=== PATIENT | female | born 1945 ===

== ENCOUNTER 2017-02-07 14:00 | Emergency (ER) | payer OTHER ==
[2017-02-07 14:00] VITALS: BMI 24.2
[2017-02-07 14:17] VITALS: RESP 18
[2017-02-07] MEDS ORDERED: Sodium Chloride 0.9% 1,000 ML IV ONE (14:39)
--- NOTE | 2017-02-07 14:43 | C.PDOC ---
History Of Present Illness <Maribel Miller - Last Filed: 02/07/17 14:32> <Jabier Turner - Last Filed: 02/07/17 16:24> Patient is a 71 y/o female that presents to the ED for evaluation of diarrhea for the last 3 days. Notes eating a banana and bagels today. Pt reports feeling weak, and lethargic. Otherwise, denies any abdominal pain, fever, chills, or any other complaints at this time. (Jabier Turner) <Maribel Miller Erasto - Last Filed: 02/07/17 14:32> History Per: Patient History/Exam Limitations: no limitations Onset/Duration Of Symptoms: Days (3) Current Symptoms Are (Timing): Still Present Severity: None Pain Scale Rating Of: 0 Radiation Of Pain To:: None Associated Symptoms: Diarrhea. denies: Fever, Chills, Loss Of Appetite, Back Pain, Chest Pain, Constipation, Urinary Symptoms Exacerbating Factors: None Alleviating Factors: None Recent travel outside of the [place]: No Additional History Per: Patient Abnormal Vaginal Bleeding: No <Jabier Turner - Last Filed: 02/07/17 16:24> Time Seen by Provider: 02/07/17 14:32 Chief Complaint (Nursing): Abdominal Pain Past Medical History - Medical History PMH: Arthritis, CAD, HTN, Hypercholesterolemia Family History: States: [place], CAD - Social History Hx Tobacco Use: No Hx Alcohol Use: No Hx Substance Use: No - Immunization History Hx Tetanus Toxoid Vaccination: No Hx Influenza Vaccination: No Hx Pneumococcal Vaccination: No <Maribel Miller - Last Filed: 02/07/17 14:32> Reviewed: Historical Data, Nursing Documentation, Vital Signs Family History: States: Unknown Family Hx <Jabier Turner - Last Filed: 02/07/17 16:24> Vital Signs: Last Vital Signs Temp 98 F 02/07/17 15:56 Pulse 60 02/07/17 15:56 Resp 18 02/07/17 15:56 BP 169/90 H 02/07/17 15:56 Pulse Ox 97 02/07/17 15:56 Review Of Systems Except As Marked, All Systems Reviewed And Found Negative. Constitutional: Positive for: Weakness. Negative for: Fever, Chills Cardiovascular: Negative for: Chest Pain, Palpitations Respiratory: Negative for: Shortness of Breath Gastrointestinal: Positive for: Diarrhea. Negative for: Abdominal Pain, Constipation, Melena, Hematochezia Genitourinary: Negative for: Dysuria, Frequency, Hematuria Musculoskeletal: Negative for: Back Pain Skin: Negative for: Rash Neurological: Negative for: Weakness, Numbness, Headache, Dizziness <Jabier Turner - Last Filed: 02/07/17 16:24> Physical Exam - Physical Exam Appears: Non-toxic, No Acute Distress Skin: Normal Color, Warm, Dry Head: Atraumatic, Normacephalic Chest: Symmetrical Cardiovascular: Rhythm Regular, No Murmur Respiratory: Normal Breath Sounds, No Rales, No Rhonchi, No Wheezing Gastrointestinal/Abdominal: Soft, No Tenderness, No Guarding, No Rebound Extremity: Bilateral: Atraumatic, Normal ROM Neurological/Psych: Oriented x3, Normal Speech <Jabier Turner - Last Filed: 02/07/17 16:24> ED Course And Treatment O2 Sat by Pulse Oximetry: 95 <Maribel Miller - Last Filed: 02/07/17 14:32> - Laboratory Results Result Diagrams: 02/07/17 15:04 02/07/17 15:04 Lab Interpretation: Normal (UA neg, trop neg.) Pulse Ox Interpretation: Normal - Radiology CXR: Interpreted by Me CXR Interpretation: Yes: No Acute Disease - Other Rad abd x 2 X-Ray: Interpreted by Me (scnat stool, no obst) Progress Note: IVF, pepcid, zofran Reevaluation Time: 15:40 Reassessment Condition: Improved <Jabier Turner - Last Filed: 02/07/17 16:24> Medical Decision Making <Maribel Miller - Last Filed: 02/07/17 14:32> <Jabier Turner - Last Filed: 02/07/17 16:24> Medical Decision Making: mild diarrhea pristine labs, argues against C-diff colitis diet and imodium educated. (Jabier Turner) Disposition <Maribel Miller - Last Filed: 02/07/17 14:32> Doctor Will See Patient In The: Office Counseled Patient/Family Regarding: Studies Performed, Diagnosis - Disposition Disposition Time: 15:41 <Johnny,Julian - Last Filed: 02/07/17 16:24> - Disposition Referrals: Johanne Levine MD [Medical Doctor] - Disposition: HOME/ ROUTINE Condition: GOOD Additional Instructions: maureen much agua Dieta de BRAT: Bananas, Arrshreyas browero, Manzashaniqua, De Leon Jojo Pepcid 20 mg en la noche por 1 semana- se baja el acidez del estomago. Imodium 2 mg 2-3x/day as needed- baja la frequencia de la diarrhea. Sigue con Dra. Levine aparna necessita. Instructions: Gastroenteritis (ED), Acute Diarrhea (ED) Print Language: SAMI - Clinical Impression Clinical Impression: Diarrhea <Maribel Miller - Last Filed: 02/07/17 14:32> - Scribe Statement The provider has reviewed the documentation as recorded by the Scribe <Jabier Turner - Last Filed: 02/07/17 16:24> - Scribe Statement Aaron Huang All medical record entries made by the Scribe were at my direction and personally dictated by me. I have reviewed the chart and agree that the record accurately reflects my personal performance of the history, physical exam, medical decision making, and the department course for this patient. I have also personally directed, reviewed, and agree with the discharge instructions and disposition. (Jabier Turner)
[2017-02-07 15:08] LABS: BASO % 0.4 % (0.0-2.0); EOS # 0.1 K/uL (0.0-0.7); EOS % 1.6 % (0.0-4.0); HEMATOCRIT 37.1 % (34.0-47.0); LYMPH # 1.5 K/uL (1.0-4.3); LYMPH % 23.8 % (20.0-40.0); MEAN CELL VOLUME 93.7 fL (81.0-99.0); MEAN CORPUSCULAR HEMOGLOBIN 31.7 pg (27.0-31.0); MEAN CORPUSCULAR HGB CONC 33.8 g/dL (33.0-37.0); MEAN PLATELET VOLUME 7.3 fL (7.2-11.7); MONO # 0.5 K/uL (0.0-0.8); MONO % 8.1 % (0.0-10.0); RED CELL DISTRIBUTION WIDTH 13.4 % (11.5-14.5); WHITE BLOOD COUNT 6.3 K/uL (4.8-10.8)
[2017-02-07] MEDS ORDERED: Sodium Chloride 0.9% 1,000 ML ONE (15:14)
[2017-02-07 15:18] LABS: CHLORIDE 102 mmol/L (98-107); SODIUM 142 mmol/L (132-148)
[2017-02-07 15:19] LABS: POTASSIUM 3.6 mmol/L (3.6-5.2)
[2017-02-07 15:21] LABS: ALB/GLOB RATIO 1.2 (1.0-2.1); ALKALINE PHOSPHATASE 65 U/L (38-126); ALT/SGPT 40 U/L (9-52); AST/SGOT 35 U/L (14-36); BILIRUBIN,TOTAL 0.7 mg/dL (0.2-1.3); BLOOD UREA NITROGEN 10 mg/dL (7-17); CARBON DIOXIDE 28 mmol/L (22-30); GFR AFRICAN-AMERICAN > 60; GLUCOSE,RANDOM 80 mg/dL (65-105); TOTAL PROTEIN 6.9 g/dL (6.3-8.3)
[2017-02-07 15:22] LABS: CALCIUM 8.9 mg/dl (8.6-10.4)
[2017-02-07 15:30] LABS: RBC URINE < 1 /hpf (0-3); URINE BACTERIA RARE (<OCC); URINE BILIRUBIN NEGATIVE (NEGATIVE); URINE BLOOD NEGATIVE (NEGATIVE); URINE COLOR Yellow (YELLOW); URINE GLUCOSE (UA) NORMAL (Normal); URINE KETONE NEGATIVE (NEGATIVE); URINE LEUKOCYTE ESTERASE TRACE Leu/uL (Negative); URINE PROTEIN NEGATIVE (NEGATIVE); URINE UROBILINOGEN NORMAL mg/dL (0.2-1.0); WBC URINE 2 /hpf (0-5)
[2017-02-07 15:57] VITALS: BP 169/90; PULSE 60; TEMP 98; O2SAT 97
--- NOTE | 2017-02-07 16:39 | RAD ---
PROCEDURE: Radiographs of the chest and abdomen (obstructive series) HISTORY: abd pain COMPARISON: No prior. TECHNIQUE: AP radiograph of the chest, with upright and supine radiographs of the abdomen. FINDINGS: CHEST: Lungs: Clear. Cardiovascular: Normal size heart. No pulmonary vascular congestion. Pleura: No pleural fluid. No pneumothorax. Other findings: None. ABDOMEN AND PELVIS: Bowel: Unremarkable bowel gas pattern. No evidence of mechanical obstruction. Free air: None. Bones: Unremarkable. Other findings: None. IMPRESSION: Unremarkable radiographs of chest and abdomen. No evidence of mechanical bowel obstruction.
--- NOTE | 2017-02-08 12:59 | CARD ---
APPROVED REPORT EKG Measurement Heart [id number] CA [id number] <Conclusion> Normal sinus rhythm Normal ECG
== END 2017-02-07 16:02 | disposition home or self-care (01) ==
LOC: C.ER 14:00
DX: R19.7 Diarrhea, unspecified (principal)
CPT/HCPCS: 74022; 80053; 81001; 83690; 84484; 85025; 87230; 93005; 96361; 96374; 96375; 99284; J1885; J2405; J7040

== ENCOUNTER 2017-02-11 14:37 | Emergency (ER) | payer OTHER ==
[2017-02-11 14:38] VITALS: BMI 24.2
[2017-02-11 14:46] VITALS: TEMP 98.7
--- NOTE | 2017-02-11 16:36 | C.PDOC ---
History Of Present Illness 71 y/o female presents to the ED with complaints of right hip and ankle pain. Pt states she went to have labs done this morning on an empty stomach and on the way home, she lost her balance and twisted her ankle and hip. Pt hx of HTN, she didn't take her medications today. Pt denies head injury, LOC, weakness, numbness or any other complaints. Chief Complaint (Nursing): Lower Extremity Problem/Injury History Per: Patient History/Exam Limitations: no limitations Onset/Duration Of Symptoms: Hrs Current Symptoms Are (Timing): Still Present Severity: Moderate Recent travel outside of the [place]: No - Hip Description Of Injury: Lost Balance - Ankle/Foot Description Of Injury: Twisted Past Medical History Reviewed: Historical Data, Nursing Documentation, Vital Signs Vital Signs: Last Vital Signs Temp 98.7 F 02/11/17 14:45 Pulse 72 02/11/17 18:20 Resp 18 02/11/17 18:20 BP 148/79 02/11/17 18:20 Pulse Ox 98 02/11/17 18:20 - Medical History PMH: Arthritis, CAD, HTN, Hypercholesterolemia Family History: States: Unknown Family Hx, [place], CAD - Social History Hx Tobacco Use: No Hx Alcohol Use: No Hx Substance Use: No - Immunization History Hx Tetanus Toxoid Vaccination: No Hx Influenza Vaccination: No Hx Pneumococcal Vaccination: No Review Of Systems Musculoskeletal: Positive for: Other (right ankle and hip pain) Neurological: Negative for: Weakness, Numbness Physical Exam - Physical Exam Appears: Non-toxic, No Acute Distress Skin: Warm, Dry, No Rash Head: Atraumatic, Normacephalic Neck: Normal, Normal ROM, Supple Chest: Symmetrical Cardiovascular: Rhythm Regular, No Murmur Respiratory: Normal Breath Sounds, No Rales, No Rhonchi, No Wheezing Extremity: Normal ROM, Tenderness (diffuse right lateral malleolus and lateral hip tenderness), No Deformity, No Swelling Pulses: Right Dorsalis Pedis: Normal Neurological/Psych: Oriented x3, Normal Speech, Normal Cognition, Normal Motor, Normal Sensation ED Course And Treatment O2 Sat by Pulse Oximetry: 96 (room air) Pulse Ox Interpretation: Normal - Other Rad Right ankle xray X-Ray: Viewed By Me, Read By Radiologist Interpretation: Accession No. : [id number]. Patient Name / ID : GREGG AZEVEDO A / [id number]. Exam Date : 02/11/2017 15:48:49 ( Approved ). Study Comment : Sex / Age : F / 71Y. Creator : Angelita Burnham V. Dictator : Angelita Burnham V. Nurse'S Assistant : Manager Pulmonary : Angelita Burnham V. Approver2 : Report Date : 02/11/2017 16:44:02. My Comment : . PROCEDURE: Right Ankle Radiographs. HISTORY: injury. COMPARISON: None. FINDINGS: BONES: A 2 x 4 mm sliver like ossification contiguous with the inferior fibula here soft tissue swelling is noted not osseous avulsion significantly displaced is consistent with this. Its age is unclear there is some relative sclerosis of the ossification. Inferior calcaneal spur. Trace posterior calcaneal spur-blending Achilles enthesophyte. JOINTS: Posterior subtalar joint hypertrophic arthrosis noted. Ankle mortise maintained. Talar dome intact. SOFT TISSUES: Lateral malleolar soft tissue swelling -mild. OTHER FINDINGS: None. IMPRESSION: Right inferior fibular 2 x 4 mm osseous avulsion - acute and chronic avulsion injuries are possible having given its relative sclerosis and soft tissue swelling here noted. Posterior subtalar joint for trophic arthrosis hip xray X-Ray: Viewed By Me, Read By Radiologist Interpretation: Accession No. : [id number]. Patient Name / ID : GREGG Alvares / [id number]. Exam Date : 02/11/2017 15:49:01 ( Approved ). Study Comment : Sex / Age : F / 71Y. Creator : Angelita Burnham V. Dictator : Angelita Burnham V. Nurse'S Assistant : Manager Pulmonary : Angelita Burnham V. Approver2 : Report Date : 02/11/2017 16:40:15. My Comment : . PROCEDURE: HISTORY: injury. COMPARISON: None. TECHNIQUE: AP view of the pelvis and applicable frog leg views obtained. FINDINGS: Bilateral superolateral acetabular spurring with corresponding joint- space narrowing here is suggested. Fracture dislocation suggested. Sacroiliac and pubic symphyseal joints are unremarkable. IMPRESSION: Bilateral osteoarthrosis. No fracture Progress Note: Plan: XR ankle and hip, losartan and carvedilol. Patient was treated with posterior short leg splint that was applied by PC and checked by me. Patient was given walker for ambulation. She was referred to Ortho for f/u. Disposition - Disposition Referrals: Johanne Levine MD [Primary Care Provider] - Geronimo De La Torre III, MD [Staff Provider] - Disposition: HOME/ ROUTINE Disposition Time: 18:02 Condition: STABLE Additional Instructions: Follow up with PMD and Orthopedist within 1-2 days. Return to ED if feel worse. Prescriptions: Naproxen [Naprosyn] 1 tab PO BID PRN #25 tab PRN Reason: Pain Famotidine [Pepcid] 20 mg PO BID #20 tab Instructions: Hip Sprain (ED), Avulsion Fracture (ED) Print Language: PERSIAN - Clinical Impression Clinical Impression: Avulsion fracture of lateral malleolus, Sprain of right hip - PA / SLATE TRIMMER / Resident Statement MD/DO has reviewed & agrees with the documentation as recorded. - Scribe Statement The provider has reviewed the documentation as recorded by the Mason Diaz All medical record entries made by the Mason were at my direction and personally dictated by me. I have reviewed the chart and agree that the record accurately reflects my personal performance of the history, physical exam, medical decision making, and the department course for this patient. I have also personally directed, reviewed, and agree with the discharge instructions and disposition.
--- NOTE | 2017-02-11 16:41 | RAD ---
PROCEDURE: HISTORY: injury COMPARISON: None TECHNIQUE: AP view of the pelvis and applicable frog leg views obtained. FINDINGS: Bilateral superolateral acetabular spurring with corresponding joint-space narrowing here is suggested. Fracture dislocation suggested. Sacroiliac and pubic symphyseal joints are unremarkable. IMPRESSION: Bilateral osteoarthrosis. No fracture
--- NOTE | 2017-02-11 16:46 | RAD ---
PROCEDURE: Right Ankle Radiographs. HISTORY: injury COMPARISON: None FINDINGS: BONES: A 2 x 4 mm sliver like ossification contiguous with the inferior fibula here soft tissue swelling is noted not osseous avulsion significantly displaced is consistent with this. Its age is unclear there is some relative sclerosis of the ossification. Inferior calcaneal spur. Trace posterior calcaneal spur-blending Achilles enthesophyte JOINTS: Posterior subtalar joint hypertrophic arthrosis noted. Ankle mortise maintained. Talar dome intact SOFT TISSUES: Lateral malleolar soft tissue swelling -mild OTHER FINDINGS: None. IMPRESSION: Right inferior fibular 2 x 4 mm osseous avulsion - acute and chronic avulsion injuries are possible having given its relative sclerosis and soft tissue swelling here noted. Posterior subtalar joint for trophic arthrosis
[2017-02-11 16:59] VITALS: RESP 18
[2017-02-11 18:29] VITALS: BP 148/79; PULSE 72
[2017-02-12 11:35] VITALS: O2SAT 96
== END 2017-02-11 18:28 | disposition home or self-care (01) ==
LOC: SUPCPDRO 14:37 → C.ER 14:37
DX: S82.61XA Displaced fracture of lateral malleolus of right fibula, initial encounter for closed fracture (principal); S73.101A Unspecified sprain of right hip, initial encounter; X58.XXXA Exposure to other specified factors, initial encounter; I10 Essential (primary) hypertension

== ENCOUNTER 2017-04-16 05:45 | Observation (INO) | payer OTHER ==
[2017-04-16 05:46] VITALS: BMI 24.2
--- NOTE | 2017-04-16 06:13 | C.PDOC ---
History Of Present Illness 72 y/o female presents to the ED for evaluation of chest pain which began at around 2300 yesterday. Patient reports her symptoms are left-sided with radiation to left neck. Patient is s/p Ultram taken at around 0500; symptoms have now improved. Patient describes symptoms as nonexertional. Patient reports prior history of similar episode but notes "but rarely." Patient medical history includes Rheumatoid Arthritis and Coronary Artery Disease with coronary stent placement in 2008. History obtained via avionics repair technician. VIA TRANS CP SINCE 2300. L SIDED RADIATION L NECK. S/P ULTRAM @ 0500 NOW IMPROVED. NONEXERTIONAL. HO PRIOR SIM EPISODE "BUT RARELY". HO RA, CAD W STENT 2008 EXAM NEG Time Seen by Provider: 04/16/17 06:13 Chief Complaint (Nursing): Chest Pain History Per: Patient, Dedicated Truck Driver History/Exam Limitations: language barrier Onset/Duration Of Symptoms: Hrs Current Symptoms Are (Timing): Still Present Quality: "Pain" Exacerbating Factors: denies: Exertion Additional History Per: Patient Past Medical History Reviewed: Historical Data, Nursing Documentation, Vital Signs Vital Signs: Last Vital Signs Temp 97.2 F L 04/16/17 05:55 Pulse 64 04/16/17 05:55 Resp 20 04/16/17 05:55 BP 169/82 H 04/16/17 05:55 Pulse Ox 97 04/16/17 06:46 - Medical History PMH: Arthritis, CAD, HTN, Hypercholesterolemia, Rheumatoid Arthritis Surgical History: Coronary Stent Family History: States: [place], CAD - Social History Hx Tobacco Use: No Hx Alcohol Use: No Hx Substance Use: No - Immunization History Hx Tetanus Toxoid Vaccination: No Hx Influenza Vaccination: No Hx Pneumococcal Vaccination: No Review Of Systems Cardiovascular: Positive for: Chest Pain (left-sided) Musculoskeletal: Positive for: Neck Pain (left ) Physical Exam - Physical Exam Appears: Non-toxic, No Acute Distress Skin: Normal Color, Warm, Dry Head: Atraumatic, Normacephalic Eye(s): bilateral: Normal Inspection Oral Mucosa: Moist Neck: Supple Chest: Symmetrical, No Deformity, No Tenderness Cardiovascular: Rhythm Regular, No Murmur Respiratory: Normal Breath Sounds, No Rales, No Rhonchi, No Wheezing Extremity: Normal ROM, Capillary Refill (less than 2 seconds ) Neurological/Psych: Oriented x3, Normal Speech, Normal Cognition Gait: Steady ED Course And Treatment - Laboratory Results Result Diagrams: 04/16/17 06:31 ECG: Interpreted By Me ECG Rhythm: Sinus Rhythm ECG Interpretation: Normal Rate From EC O2 Sat by Pulse Oximetry: 97 (on RA) Pulse Ox Interpretation: Normal Progress Note: labs and EKG ordered and reviewed. Patient reiceved Aspirin PO, Tylenol PO, and Nitroglycerin TOP. Progress - Data Reviewed Data Reviewed: Lab, Diagnostic imaging, EKG, Old records Disposition - Disposition Disposition Time: 07:00 Condition: STABLE Forms: PrivacyProtector (Hong Konger) - Clinical Impression Clinical Impression: Chest pain - Scribe Statement The provider has reviewed the documentation as recorded by the Scribe (Amena Huang) Provider Attestation: All medical record entries made by the Scribe were at my direction and personally dictated by me. I have reviewed the chart and agree that the record accurately reflects my personal performance of the history, physical exam, medical decision making, and the department course for this patient. I have also personally directed, reviewed, and agree with the discharge instructions and disposition. Physician Patient Turnover Patient Signed Over To: Malena Mahmood Handoff Comments: fu labs, dispo
[2017-04-16] MEDS ORDERED: Aspirin 325 mg EC Tablets PO STA (06:25)
[2017-04-16] MEDS ORDERED: Nitroglycerin 2% Ointment Foilpak UD TOP STA (06:25)
[2017-04-16] MEDS ORDERED: Aspirin 325 mg EC Tablets PO ONE (06:35)
[2017-04-16] MEDS ORDERED: Nitroglycerin 2% Ointment Foilpak UD TOP ONE (06:35)
[2017-04-16 06:42] LABS: BASO % 0.4 % (0.0-2.0); CHLORIDE 104 mmol/L (98-107); EOS # 0.1 K/uL (0.0-0.7); EOS % 1.9 % (0.0-4.0); HEMATOCRIT 35.2 % (34.0-47.0); LYMPH % 37.7 % (20.0-40.0); MEAN CELL VOLUME 93.4 fL (81.0-99.0); MEAN CORPUSCULAR HEMOGLOBIN 32.1 pg (27.0-31.0); MEAN CORPUSCULAR HGB CONC 34.3 g/dL (33.0-37.0); MEAN PLATELET VOLUME 7.7 fL (7.2-11.7); MONO # 0.4 K/uL (0.0-0.8); MONO % 7.6 % (0.0-10.0); RED CELL DISTRIBUTION WIDTH 13.5 % (11.5-14.5); WHITE BLOOD COUNT 5.4 K/uL (4.8-10.8)
[2017-04-16 06:43] LABS: POTASSIUM 3.6 mmol/L (3.6-5.2); SODIUM 142 mmol/L (132-148)
[2017-04-16 06:45] LABS: ALB/GLOB RATIO 1.2 (1.0-2.1); ALKALINE PHOSPHATASE 72 U/L (38-126); ALT/SGPT 27 U/L (9-52); AST/SGOT 19 U/L (14-36); BILIRUBIN,TOTAL 0.6 mg/dL (0.2-1.3); BLOOD UREA NITROGEN 11 mg/dL (7-17); CARBON DIOXIDE 25 mmol/L (22-30); GFR AFRICAN-AMERICAN > 60; TOTAL PROTEIN 6.8 g/dL (6.3-8.3)
[2017-04-16 06:46] LABS: CALCIUM 9.3 mg/dl (8.6-10.4); GLUCOSE,RANDOM 92 mg/dL (65-105)
--- NOTE | 2017-04-16 07:45 | RAD ---
PROCEDURE: CHEST RADIOGRAPH, 1 VIEW HISTORY: chest pain COMPARISON: 02/13/2015 FINDINGS: LUNGS: No focal infiltrate or effusion. PLEURA: No pneumothorax or pleural fluid seen. CARDIOVASCULAR: Normal. OSSEOUS STRUCTURES: No significant abnormalities. VISUALIZED UPPER ABDOMEN: Normal. OTHER FINDINGS: None. IMPRESSION: No active disease.
--- NOTE | 2017-04-16 21:51 | CON ---
DATE: REASON FOR CONSULTATION: Chest pain. HISTORY OF PRESENT ILLNESS: The patient is a 72-year-old female who has a history of hypertension and history of coronary artery disease. According to the patient, she underwent stents in the past 7 years ago at [facility]. The patient follows up with the knitting supervisor that neither the patient or the family remember his name, except for the fact he is located in [facility]. The patient presented because of systemic chest tightness associated with shortness of breath. SOCIAL HISTORY: Nonsmoker. MEDICATIONS: Coreg 12.5 mg twice a day, Cozaar 100 mg once a day, Crestor 10 mg once a day, aspirin 81 mg once a day, and subcutaneous heparin 5000 units twice a day. REVIEW OF SYSTEMS: No fever or chills. No vomiting or diarrhea. No dizziness or syncope. PHYSICAL EXAMINATION: GENERAL: The patient is an elderly female who does not appear to be in acute distress. VITAL SIGNS: Blood pressure 139/85, heart rate 62, temperature 97.2, and respirations 18. HEENT: Normocephalic. NECK: No JVD. CHEST: Clear. HEART: S1 and S2. Regular. ABDOMEN: Soft. EXTREMITIES: No edema. LABORATORY DATA: SMA-7 is within normal limits, except for creatinine of 0.5. One set of troponin is negative. Hemoglobin, hematocrit, white count, and platelet count are within normal limits. EKG reveals normal sinus rhythm. ASSESSMENT: 1. Chest pain, rule out myocardial infarction. 2. Hypertension. 3. History of coronary stenting in 2008. RECOMMENDATIONS: Continue Coreg at 12.5 mg twice a day, Cozaar 100 mg once a week, Crestor 10 mg once a day, aspirin 81 mg once a day, and subcutaneous heparin at 5000 units twice a day. Monitor daily EKG and serial cardiac enzymes. Obtain an echocardiogram. If the patient is able to identify her knitting supervisor then the service will be transferred to that knitting supervisor. Otherwise I will continue the cardiac care of this patient, while she is on telemetry. Christian Odell MD
--- NOTE | 2017-04-16 23:17 | CARD ---
APPROVED REPORT EXAM: Two-dimensional and M-mode echocardiogram with Doppler and color Doppler. Other Information Quality : GoodRhythm : NSR INDICATION Dizziness and Vertigo Chest Pain ANXIETY 2D DIMENSIONS IVSd1.3 (0.7-1.1cm)LVDd2.9 (3.9-5.9cm) PWd1.1 (0.7-1.1cm)LVDs2.0 (2.5-4.0cm) FS (%) 32.9 %LVEF (%)63.1 (>50%) M-Mode DIMENSIONS Left Atrium (MM)3.51 (2.5-4.0cm)Aortic Root3.22 (2.2-3.7cm) Aortic Cusp Exc.2.23 (1.5-2.0cm) Mitral Valve MV E Rkohxwnf40.5cm/sMV A Jdtgmdhs30.6cm/sE/A ratio0.7 TDI E/Lateral E'0.0E/Medial E'0.0 Tricuspid Valve TR Peak Teivajfp001xk/sTR Peak Gr.[id number] LEFT VENTRICLE The left ventricle is normal size. There is mild concentric left ventricular hypertrophy. The left ventricular function is normal. The left ventricular ejection fraction is within the normal range. There is normal LV segmental wall motion. Transmitral Doppler flow pattern is Grade I-abnormal relaxation pattern. RIGHT VENTRICLE The right ventricle is normal size. There is normal right ventricular wall thickness. The right ventricular systolic function is normal. ATRIA The left atrium size is normal. The right atrium size is normal. AORTIC VALVE The aortic valve is thickened but opens well. No aortic regurgitation is present. There is no aortic valvular stenosis. MITRAL VALVE The mitral valve is moderately thickened. A mild mitral valve prolapse is present. Mitral regurgitation is mild. TRICUSPID VALVE There is trace tricuspid regurgitation. PULMONIC VALVE There is trace pulmonic valvular regurgitation. GREAT VESSELS The aortic root is normal in size. The IVC is normal in size and collapses >50% with inspiration. <Conclusion> There is mild concentric left ventricular hypertrophy. The left ventricular function is normal. The left ventricular ejection fraction is within the normal range. There is normal LV segmental wall motion. Transmitral Doppler flow pattern is Grade I-abnormal relaxation pattern. Mitral regurgitation is mild.
--- NOTE | 2017-04-16 23:35 | CP.PCM.HP ---
History of Present Illness - History of Present Illness History of Present Illness: 72 y/o female presents to the ED for evaluation of chest pain which began at around 2300 yesterday. Patient reports her symptoms are left-sided with radiation to left neck. Patient is s/p Ultram taken at around 0500; symptoms have now improved. Patient describes symptoms as nonexertional. Patient reports prior history of similar episode but notes "but rarely." Patient medical history includes Rheumatoid Arthritis and Coronary Artery Disease with coronary stent placement in 2008. History obtained via cut off sawyer. Past Patient History - Infectious Disease Hx of Infectious Diseases: None - Past Medical History & Family History Past Medical History?: Yes - Past Social History Smoking Status: Never Smoked - CARDIAC Hx Cardiac Disorders: Yes Hx Hypercholesterolemia: Yes Hx Hypertension: Yes - MUSCULOSKELETAL/RHEUMATOLOGICAL Hx Arthritis: Yes Hx Rheumatoid Arthritis: Yes - PSYCHIATRIC Hx Substance Use: No - SURGICAL HISTORY Hx Coronary Stent: Yes (x2) - ANESTHESIA Hx Anesthesia: Yes Hx Anesthesia Reactions: No Meds Allergies/Adverse Reactions: Allergies Allergy/AdvReac Type Severity Reaction Status Date / Time No Known Allergies Allergy Verified 04/16/17 05:59 Results - Vital Signs Recent Vital Signs: Last Vital Signs Temp 97.5 F L 04/16/17 15:47 Pulse 55 L 04/16/17 15:47 Resp 18 04/16/17 15:47 BP 122/62 04/16/17 17:54 Pulse Ox 97 04/16/17 15:47 - Labs Result Diagrams: 04/16/17 06:31 04/16/17 06:31 Labs: Laboratory Results - last 24 hr 04/16/17 04/16/17 04/16/17 06:31 06:31 16:50 WBC 5.4 RBC 3.77 L Hgb 12.1 Hct 35.2 MCV 93.4 MCH 32.1 H MCHC 34.3 RDW 13.5 Plt Count 237 MPV 7.7 Neut % (Auto) 52.4 Lymph % (Auto) 37.7 [place] % (Auto) 7.6 Eos % (Auto) 1.9 Baso % (Auto) 0.4 Neut # 2.8 Lymph # 2.0 [place] # 0.4 Eos # 0.1 Baso # 0.0 Sodium 142 Potassium 3.6 Chloride 104 Carbon Dioxide 25 Anion Gap 18 BUN 11 Creatinine 0.5 L Est GFR ( Amer) > 60 Est GFR (Non-Af Amer) > 60 Random Glucose 92 Calcium 9.3 Total Bilirubin 0.6 AST 19 ALT 27 Alkaline Phosphatase 72 Total Creatine Kinase 51 CK-MB (Mass) 0.29 Troponin I < 0.0120 Troponin I, Quant < 0.0120 Total Protein 6.8 Albumin 3.7 Globulin 3.1 Albumin/Globulin Ratio 1.2 04/16/17 23:06 WBC RBC Hgb Hct MCV MCH MCHC RDW Plt Count MPV Neut % (Auto) Lymph % (Auto) [place] % (Auto) Eos % (Auto) Baso % (Auto) Neut # Lymph # [place] # Eos # Baso # Sodium Potassium Chloride Carbon Dioxide Anion Gap BUN Creatinine Est GFR ( Amer) Est GFR (Non-Af Amer) Random Glucose Calcium Total Bilirubin AST ALT Alkaline Phosphatase Total Creatine Kinase 50 CK-MB (Mass) 0.35 Troponin I Troponin I, Quant Total Protein Albumin Globulin Albumin/Globulin Ratio
--- NOTE | 2017-04-17 01:33 | CARD ---
APPROVED REPORT EKG Measurement Heart [id number] <Conclusion> Normal sinus rhythm Normal ECG
[2017-04-17 02:15] VITALS: RESP 20
[2017-04-17] MEDS ORDERED: Albuterol-Ipratrop 3 mg / 0.5 (3 ml) UD ONE (07:24)
[2017-04-17 15:47] VITALS: BP 158/94; PULSE 68; TEMP 97.6; O2SAT 99
--- NOTE | 2017-04-17 19:48 | PN ---
SUBJECTIVE: The patient denies any chest pain or shortness of breath at this time. PHYSICAL EXAMINATION: VITAL SIGNS: Blood pressure 147/86, heart rate 73, temperature 98, respirations 20. HEENT: Normocephalic. NECK: No JVD. CHEST: Clear. HEART: S1 and S2, regular. ABDOMEN: Soft. EXTREMITIES: No edema. LABORATORY DATA: Three sets of troponins are negative. Echocardiograph study revealed mild concentric left ventricular hypertrophy, normal left ventricular systolic function and normal segmental wall motion and mild mitral insufficiency. ASSESSMENT: 1. Chest pain, myocardial infarction is ruled out. 2. Hypertension and hyperlipidemia. RECOMMENDATIONS: Case was discussed at length with the patient as well as primary physician. The patient can be discharged on Coreg, Cozaar, Crestor, and aspirin therapy. The patient would be followed by her put in beat adjuster, his name is Dr. Mendez, who can perform an exercise stress test as an outpatient. Christian Odell MD
--- NOTE | 2017-04-18 10:19 | CP.PCM.DIS ---
Provider - Provider Date of Admission: 04/16/17 07:36 Attending physician: Julien Iraheta MD Time Spent in preparation of Discharge (in minutes): 45 Hospital Course - Lab Results Lab Results: Most Recent Lab Values WBC 5.4 K/uL (4.8-10.8) 04/16/17 06:31 RBC 3.77 Mil/uL (3.80-5.20) L 04/16/17 06:31 Hgb 12.1 g/dL (11.0-16.0) 04/16/17 06:31 Hct 35.2 % (34.0-47.0) 04/16/17 06:31 MCV 93.4 fL (81.0-99.0) 04/16/17 06:31 MCH 32.1 pg (27.0-31.0) H 04/16/17 06:31 MCHC 34.3 g/dL (33.0-37.0) 04/16/17 06:31 RDW 13.5 % (11.5-14.5) 04/16/17 06:31 Plt Count 237 K/uL (130-400) 04/16/17 06:31 MPV 7.7 fL (7.2-11.7) 04/16/17 06:31 Neut % (Auto) 52.4 % (50.0-75.0) 04/16/17 06:31 Lymph % (Auto) 37.7 % (20.0-40.0) 04/16/17 06:31 Casey % (Auto) 7.6 % (0.0-10.0) 04/16/17 06:31 Eos % (Auto) 1.9 % (0.0-4.0) 04/16/17 06:31 Baso % (Auto) 0.4 % (0.0-2.0) 04/16/17 06:31 Neut # 2.8 K/uL (1.8-7.0) 04/16/17 06:31 Lymph # 2.0 K/uL (1.0-4.3) 04/16/17 06:31 Casey # 0.4 K/uL (0.0-0.8) 04/16/17 06:31 Eos # 0.1 K/uL (0.0-0.7) 04/16/17 06:31 Baso # 0.0 K/uL (0.0-0.2) 04/16/17 06:31 Sodium 142 mmol/L (132-148) 04/16/17 06:31 Potassium 3.6 mmol/L (3.6-5.2) 04/16/17 06:31 Chloride 104 mmol/L (98-107) 04/16/17 06:31 Carbon Dioxide 25 mmol/L (22-30) 04/16/17 06:31 Anion Gap 18 (10-20) 04/16/17 06:31 BUN 11 mg/dL (7-17) 04/16/17 06:31 Creatinine 0.5 MG/DL (0.7-1.2) L 04/16/17 06:31 Est GFR ( Amer) > 60 04/16/17 06:31 Est GFR (Non-Af Amer) > 60 04/16/17 06:31 Random Glucose 92 mg/dL (65-105) 04/16/17 06:31 Calcium 9.3 mg/dl (8.6-10.4) 04/16/17 06:31 Total Bilirubin 0.6 mg/dL (0.2-1.3) 04/16/17 06:31 AST 19 U/L (14-36) 04/16/17 06:31 ALT 27 U/L (9-52) 04/16/17 06:31 Alkaline Phosphatase 72 U/L (38-126) 04/16/17 06:31 Total Creatine Kinase 50 U/L (30-135) 04/16/17 23:06 CK-MB (Mass) 0.35 ng/mL (0.0-3.38) 04/16/17 23:06 Troponin I < 0.0120 ng/mL (0.00-0.120) 04/16/17 06:31 Troponin I, Quant < 0.0120 ng/mL (0.00-0.120) 04/16/17 23:06 Total Protein 6.8 g/dL (6.3-8.3) 04/16/17 06:31 Albumin 3.7 g/dL (3.5-5.0) 04/16/17 06:31 Globulin 3.1 gm/dL (2.2-3.9) 04/16/17 06:31 Albumin/Globulin Ratio 1.2 (1.0-2.1) 04/16/17 06:31 - Hospital Course Hospital Course: Pt seen & evaluated at bedside, pt is feeling better, chest pain is resolved, cardiac enzymes, Echo, stress test is normal Discharge Exam - Head Exam Head Exam: ATRAUMATIC, NORMAL INSPECTION, NORMOCEPHALIC - Eye Exam Eye Exam: EOMI, Normal appearance, PERRL Pupil Exam: NORMAL ACCOMODATION, PERRL - ENT Exam ENT Exam: Mucous Membranes Moist - Respiratory Exam Respiratory Exam: Clear to PA & Lateral, NORMAL BREATHING PATTERN - Cardiovascular Exam Cardiovascular Exam: +S1, +S2 - GI/Abdominal Exam GI & Abdominal Exam: Normal Bowel Sounds Discharge Plan - Follow Up Plan Condition: STABLE Disposition: HOME/ ROUTINE Instructions: Chest Pain (DC), Chest Pain (GEN) Additional Instructions: follow up with Dr. Mendez in one week
== END 2017-04-17 15:45 | disposition home or self-care (01) ==
LOC: C.ER 05:45 → C.9E 07:36 → C.5S 08:09 → C.6T 14:16
PROVIDERS: ADMIT Internal Medicine; ATTEND Internal Medicine
DX: R07.89 Other chest pain (principal); I10 Essential (primary) hypertension; I25.10 Atherosclerotic heart disease of native coronary artery without angina pectoris; M06.9 Rheumatoid arthritis, unspecified; E78.5 Hyperlipidemia, unspecified; Z95.5 Presence of coronary angioplasty implant and graft
CPT/HCPCS: 71010; 80053; 84484; 85025; 93005; 93306; 97116; 97161; 99285; G0378; G8978; G8979; J1644